=== PATIENT | male | born 1985 | race Caucasian/White ===

== ENCOUNTER 2024-06-04 08:15 | Outpatient (RCR) | payer OTHER, SELFPAY ==
[2024-05-22 09:40] VITALS: BP 118/78; PULSE 77; TEMP 36.9
[2024-05-22 09:42] VITALS: BMI 24.3
--- NOTE | 2024-05-22 21:40 | HO.PS.ADMBH ---
HPI Date of Service: 05/22/24 Chief Complaint: ADHD,BPAD [facility] Medical History (Updated 05/27/24 @ 20:49 by Kyleigh Nava MD) Non-ST elevation myocardial infarction (NSTEMI) Infectious colitis Hyperlipidemia Justyn thyroiditis Chronic idiopathic urticaria GERD (gastroesophageal reflux disease) Diagnostics Vital Signs (24Hr): Vital Signs - 24 hr 05/22/24 09:40 Temperature 98.5 F Pulse Rate 77 Blood Pressure 118/78 BMI result Body Mass Index 24.3 Meds/Allergies Meds Home Medications ?Medication ?Instructions ?Recorded ?Confirmed ?Type cholecalciferol (vitamin D3) 25 25 mcg PO DAILY 05/22/24 05/22/24 History mcg (1,000 unit) capsule clonazepam 0.125 mg disintegrating 0.125 mg PO DAILY 05/22/24 05/22/24 History tablet clonazepam 0.5 mg tablet 0.5 mg PO BEDTIME 05/22/24 05/22/24 History epinephrine 0.3 mg/0.3 mL 0.3 mg IM DAILY PRN Anaphylaxis 05/22/24 05/22/24 History injection, auto-injector famotidine 20 mg tablet 20 mg PO BID 05/22/24 05/22/24 History lisdexamfetamine 40 mg capsule 40 mg PO DAILY 05/22/24 05/22/24 History (Vyvanse) lorazepam 0.5 mg tablet 0.5 mg PO BEDTIME PRN 05/22/24 05/22/24 History anxiety/insomnia meclizine 25 mg tablet 25 mg PO TID PRN Anxiety 05/22/24 05/22/24 History ondansetron 4 mg disintegrating 4 mg PO Q8H PRN Nausea 05/22/24 05/22/24 History tablet omalizumab 150 mg/mL subcutaneous 150 mg subcut QMONTH 05/26/24 05/26/24 History syringe (Xolair) Allergies Allergies Allergy/AdvReac Type Severity Reaction Status Date / Time aripiprazole [From Abilify] Allergy Akathesia Verified 05/22/24 09:38 lamotrigine [From Lamictal] AdvReac Flu like Verified 05/22/24 09:39 symptoms zolpidem [From Ambien] AdvReac Hallucinati Verified 05/22/24 09:38 ons Assessment & Plan Assessment & Plan (1) Attention-deficit hyperactivity disorder, unspecified type: Status: Acute Code(s): F90.9 - Attention-deficit hyperactivity disorder, unspecified type (2) Other specified depressive episodes: Status: Acute Code(s): F32.89 - Other specified depressive episodes (3) Other specified anxiety disorders: Status: Acute Code(s): F41.8 - Other specified anxiety disorders Plan Admit to [facility] VS reviewed: abrefile; BP?118/78; 77 bpm Continue regular medications for now continue lisdexamfetamine 40 mg qam pt will consider starting guanfacine ER to mitigate any potential anxiety/SE Routine lab work UDS, EKG as indicated [facility] reviewed Continue to monitor as per protocol Patient educated on: diagnosis, medication risk/benefits and substance abuse Informed Consent: understands Reason for continued partial hosp. stay Substantial Risk for: inability to function and med/psych decompensation Certification I certify that partial hospital treatment is medically necessary due to the symptoms and problems resulting from the patient's mental illness and the failure to treat the patient at the partial hospital level of care would likely result in the patient requiring inpatient psychiatric care which could not be prevented at a less intensive level of care. Time Spent With Patient Time: Total time managing care of this patient today __60__ minutes.
--- NOTE | 2024-05-26 22:04 | P.PNPSP_ITS ---
Subjective Subjective Date of Service: 05/26/24 Reason For Visit: ADHD,BPAD Diagnostics Vital Signs (24Hr): BMI result Body Mass Index 24.3 Assessment & Plan Assessment & Plan Plan start clonidine 0.1 mg qhs PRN sleep start guanfacine ER 1 mg qam-afternoon PRN anxiety/ADHD meds continue Vyvanse 50 mg qam continue other regular medication reviewed recent lab work done 05/06 through PCP office continue to monitor Patient educated on: diagnosis and medication risk/benefits Informed Consent: understands Reason for contiued partial hosp. stay Substantial Risk for: inability to function and med/psych decompensation Certification I certify that partial hospital treatment is medically necessary due to the symptoms and problems resulting from the patient's mental illness and the failure to treat the patient at the partial hospital level of care would likely result in the patient requiring inpatient psychiatric care which could not be prevented at a less intensive level of care. Total time managing care of this patient today _30___ minutes. Discharge Plan Discharge Attending provider: Kyleigh Nava Medications: New lisdexamfetamine 10 mg capsule 10 mg PO QAM Qty: 14 0RF Rx Instructions: Partial Fill upon patient request. guanfacine 1 mg tablet extended release 24 hr 1 mg PO DAILY Qty: 14 0RF clonidine HCl 0.1 mg tablet 0.1 mg PO BEDTIME PRN (Reason: sleep) Qty: 14 0RF No Action clonazepam 0.5 mg Tablet 0.5 mg PO BEDTIME Rx Instructions: administer 30 minutes before bedtime cholecalciferol (vitamin D3) 25 mcg (1,000 unit) Capsule 25 mcg PO DAILY clonazepam 0.125 mg Tablet,Disintegrating 0.125 mg PO DAILY lisdexamfetamine [Vyvanse] 40 mg Capsule 40 mg PO DAILY epinephrine 0.3 mg/0.3 mL Auto-Injector 0.3 mg IM DAILY PRN (Reason: Anaphylaxis) Rx Instructions: for 2 doses famotidine 20 mg Tablet 20 mg PO BID lorazepam 0.5 mg Tablet 0.5 mg PO BEDTIME PRN (Reason: anxiety/insomnia) meclizine 25 mg Tablet 25 mg PO TID PRN (Reason: Anxiety) ondansetron 4 mg Tablet,Disintegrating 4 mg PO Q8H PRN (Reason: Nausea) Xolair 150 mg/mL syringe 150 mg subcut QMONTH Patient Comments: This was discontinued from discharge list per [facility] paperwork however patient stated they made a mistake as he is on this medication currently. Print Language: [place]ese
--- NOTE | 2024-05-28 09:02 | PC.NURSE ---
Arnold called this morning and stated he started Vyvanse 50 mg this morning. He reports a half hour after taking the medication he experienced nausea and vomiting. He reports some cramping however has had that previously d/t dose increases. He also stated he started Guanfacine 1 mg last night. He called out of the program today d/t symptoms. is aware and will call Arnold to f/u.
--- NOTE | 2024-05-28 17:24 | HO.PHP ---
Client's case has been opened and reviewed in team.
--- NOTE | 2024-05-29 22:08 | P.PNPSP_ITS ---
Subjective Subjective Reason For Visit: ADHD,BPAD Diagnostics Vital Signs (24Hr): BMI result Body Mass Index 24.3 Assessment & Plan Assessment & Plan Plan consider restarting guanfacine ER at 0.5-1 mg qd PRN anxiety/mitigate stimulant side effects lower Vyvanse to 40 mg qam for now continue clonidine 0.1 mg qhs PRN sleep continue other regular medication reviewed recent lab work done 05/06 through PCP office continue to monitor Certification I certify that partial hospital treatment is medically necessary due to the symptoms and problems resulting from the patient's mental illness and the failure to treat the patient at the partial hospital level of care would likely result in the patient requiring inpatient psychiatric care which could not be prevented at a less intensive level of care. Total time managing care of this patient today ____ minutes. Discharge Plan Discharge Attending provider: Kyleigh Nava Medications: New lisdexamfetamine 10 mg capsule 10 mg PO QAM Qty: 14 0RF Rx Instructions: Partial Fill upon patient request. guanfacine 1 mg tablet extended release 24 hr 1 mg PO DAILY Qty: 14 0RF clonidine HCl 0.1 mg tablet 0.1 mg PO BEDTIME PRN (Reason: sleep) Qty: 14 0RF lisdexamfetamine 40 mg tablet,chewable 40 mg PO QAM Qty: 30 0RF Rx Instructions: Partial Fill upon patient request. No Action clonazepam 0.5 mg Tablet 0.5 mg PO BEDTIME Rx Instructions: administer 30 minutes before bedtime cholecalciferol (vitamin D3) 25 mcg (1,000 unit) Capsule 25 mcg PO DAILY clonazepam 0.125 mg Tablet,Disintegrating 0.125 mg PO DAILY lisdexamfetamine [Vyvanse] 40 mg Capsule 40 mg PO DAILY epinephrine 0.3 mg/0.3 mL Auto-Injector 0.3 mg IM DAILY PRN (Reason: Anaphylaxis) Rx Instructions: for 2 doses famotidine 20 mg Tablet 20 mg PO BID lorazepam 0.5 mg Tablet 0.5 mg PO BEDTIME PRN (Reason: anxiety/insomnia) meclizine 25 mg Tablet 25 mg PO TID PRN (Reason: Anxiety) ondansetron 4 mg Tablet,Disintegrating 4 mg PO Q8H PRN (Reason: Nausea) Xolair 150 mg/mL syringe 150 mg subcut QMONTH Patient Comments: This was discontinued from discharge list per [facility] paperwork however patient stated they made a mistake as he is on this medication currently. Print Language: [place] Tele[facility] Telehealth Telehealth Platform: Telephone
--- NOTE | 2024-06-02 20:28 | HO.PHPPROGNO ---
Subjective Subjective Date of Service: 06/02/24 Reason For Visit: ADHD,BPAD Mental Status Exam Mental Status Exam Narrative: Alert, oriented, in no acute distress. Calm, cooperative, engaged, well-related. Eye contact maintained. Mood less anxious, affect brigher, full range, mood congruent. Speech normal. Thought process linear, coherent. Thought content related to stressors, denies any hopelessness or SI. Denies any aggressive ideation or HI. No paranoia or delusional content elicited. No evidence of psychosis. Insight and judgment - fair but adequate. Diagnostics Vital Signs (24Hr): BMI result Body Mass Index 24.3 Assessment & Plan Assessment & Plan (1) Attention-deficit hyperactivity disorder, unspecified type: Status: Acute Code(s): F90.9 - Attention-deficit hyperactivity disorder, unspecified type (2) Other specified depressive episodes: Status: Acute Code(s): F32.89 - Other specified depressive episodes (3) Other specified anxiety disorders: Status: Acute Code(s): F41.8 - Other specified anxiety disorders Plan continue Vyvanse 40 mg qam, will try ordering chewable formulation to provide some flexibility around dosing continue guanfacine ER at 0.5-1 mg qd PRN anxiety/mitigate stimulant side effects (especially if patient tries increase Vyvanse again to 50 mg continue clonidine 0.1 mg qhs PRN sleep continue other regular medication reviewed recent lab work done 05/06 through PCP office continue to monitor Patient educated on: diagnosis and medication risk/benefits Informed Consent: understands Reason for contiued partial hosp. stay Substantial Risk for: med/psych decompensation Certification I certify that partial hospital treatment is medically necessary due to the symptoms and problems resulting from the patient's mental illness and the failure to treat the patient at the partial hospital level of care would likely result in the patient requiring inpatient psychiatric care which could not be prevented at a less intensive level of care. Total time managing care of this patient today _30___ minutes. Discharge Plan Discharge Attending provider: Kyleigh Nava Medications: New lisdexamfetamine 10 mg capsule 10 mg PO QAM Qty: 14 0RF Rx Instructions: Partial Fill upon patient request. guanfacine 1 mg tablet extended release 24 hr 1 mg PO DAILY Qty: 14 0RF clonidine HCl 0.1 mg tablet 0.1 mg PO BEDTIME PRN (Reason: sleep) Qty: 14 0RF lisdexamfetamine 40 mg tablet,chewable 40 mg PO QAM Qty: 30 0RF Rx Instructions: Partial Fill upon patient request. No Action clonazepam 0.5 mg Tablet 0.5 mg PO BEDTIME Rx Instructions: administer 30 minutes before bedtime cholecalciferol (vitamin D3) 25 mcg (1,000 unit) Capsule 25 mcg PO DAILY clonazepam 0.125 mg Tablet,Disintegrating 0.125 mg PO DAILY lisdexamfetamine [Vyvanse] 40 mg Capsule 40 mg PO DAILY epinephrine 0.3 mg/0.3 mL Auto-Injector 0.3 mg IM DAILY PRN (Reason: Anaphylaxis) Rx Instructions: for 2 doses famotidine 20 mg Tablet 20 mg PO BID lorazepam 0.5 mg Tablet 0.5 mg PO BEDTIME PRN (Reason: anxiety/insomnia) meclizine 25 mg Tablet 25 mg PO TID PRN (Reason: Anxiety) ondansetron 4 mg Tablet,Disintegrating 4 mg PO Q8H PRN (Reason: Nausea) Xolair 150 mg/mL syringe 150 mg subcut QMONTH Patient Comments: This was discontinued from discharge list per [facility] paperwork however patient stated they made a mistake as he is on this medication currently. Print Language: [place]ese
--- NOTE | 2024-06-04 22:01 | HO.PHPPROGNO ---
Subjective Subjective Date of Service: 06/04/24 Reason For Visit: ADHD,BPAD Interim History: Patient seen for follow-up, anticipating discharge at the end of program today.? Continues to focus on self care practices, stress management, stimulant treatment and behavioral strategies to address ADHD struggles, with an eye toward eventually returning to work. Reports no acute issues or concerns. Medication compliant, medications well-tolerated. Denies any adverse effects.? Mood is stable. Anxiety still there but much more managable, and better managed.? Denies any hopelessness or SI. Denies thoughts of harming self or others at this time. Denies any aggressive ideation or HI. Denies any paranoia or AH or VH. Sleep, appetite, energy stable. Mental Status Exam Mental Status Exam Narrative: Alert, oriented, in no acute distress. Calm, cooperative. Mood stable, affect appropriate. Speech normal. Goal-directed. Thought content related to stressors, future-oriented, denies SI or HI. No evidence of psychosis. Insight and judgment intact Diagnostics Vital Signs (24Hr): BMI result Body Mass Index 24.3 Assessment & Plan Assessment & Plan (1) Attention-deficit hyperactivity disorder, unspecified type: Status: Acute Code(s): F90.9 - Attention-deficit hyperactivity disorder, unspecified type (2) Other specified depressive episodes: Status: Acute Code(s): F32.89 - Other specified depressive episodes (3) Other specified anxiety disorders: Status: Acute Code(s): F41.8 - Other specified anxiety disorders Plan Discharge from [facility] continue Vyvanse 40 mg qam, will try ordering chewable formulation to provide some flexibility around dosing continue guanfacine ER at 0.5-1 mg qd PRN anxiety/mitigate stimulant side effects (especially if patient tries increase Vyvanse again to 50 mg continue clonidine 0.1 mg qhs PRN sleep continue other regular medication Will defer further medication management to outpatient providerx Patient educated on: diagnosis, medication risk/benefits and other (Referrals for neuropsychological testing) Informed Consent: understands Reason for contiued partial hosp. stay Substantial Risk for: stable for discharge Certification I certify that partial hospital treatment is medically necessary due to the symptoms and problems resulting from the patient's mental illness and the failure to treat the patient at the partial hospital level of care would likely result in the patient requiring inpatient psychiatric care which could not be prevented at a less intensive level of care. Total time managing care of this patient today __30__ minutes. Discharge Plan Discharge Attending provider: Kyleigh Nava Medications: New guanfacine 1 mg tablet extended release 24 hr 1 mg PO DAILY Qty: 14 0RF clonidine HCl 0.1 mg tablet 0.1 mg PO BEDTIME PRN (Reason: sleep) Qty: 14 0RF lisdexamfetamine 40 mg tablet,chewable 40 mg PO QAM Qty: 30 0RF Rx Instructions: Partial Fill upon patient request. Continued cholecalciferol (vitamin D3) 25 mcg (1,000 unit) Capsule 25 mcg PO DAILY epinephrine 0.3 mg/0.3 mL Auto-Injector 0.3 mg IM DAILY PRN (Reason: Anaphylaxis) Rx Instructions: for 2 doses famotidine 20 mg Tablet 20 mg PO BID meclizine 25 mg Tablet 25 mg PO TID PRN (Reason: Anxiety) ondansetron 4 mg Tablet,Disintegrating 4 mg PO Q8H PRN (Reason: Nausea) Xolair 150 mg/mL syringe 150 mg subcut QMONTH Patient Comments: This was discontinued from discharge list per [place] paperwork however patient stated they made a mistake as he is on this medication currently. Changed clonazepam 0.5 mg Tablet 0.5 mg PO BID PRN (Reason: anxiety, sleep) Qty: 30 0RF Rx Instructions: administer 30 minutes before bedtime Discontinued clonazepam 0.125 mg Tablet,Disintegrating 0.125 mg PO DAILY lisdexamfetamine [Vyvanse] 40 mg Capsule 40 mg PO DAILY lorazepam 0.5 mg Tablet 0.5 mg PO BEDTIME PRN (Reason: anxiety/insomnia) Stand Alone Forms: Patient Portal Discharge page Patient Education: ADHD in Adults (DC), Depression (DC) Print Language: [place]ralt[place]
== END 2024-06-04 23:59 | disposition home or self-care (01) ==
LOC: HO.PHPA 08:15
PROVIDERS: Visit Provider Psychiatry & Neurology Psychiatry
DX: F90.9 Attention-deficit hyperactivity disorder, unspecified type (principal); F32.89 Other specified depressive episodes; F41.8 Other specified anxiety disorders; Z79.899 Other long term (current) drug therapy
CPT/HCPCS: 90791; 90853

== ENCOUNTER → 2024-06-04 08:15 | Outpatient (BNV) | payer OTHER, SELFPAY | PROVIDERS: Visit Provider Psychiatry & Neurology Psychiatry | DX: F90.9 Attention-deficit hyperactivity disorder, unspecified type (principal); F32.89 Other specified depressive episodes; F41.8 Other specified anxiety disorders | CPT/HCPCS: 99213 ==